=== PATIENT | male | born 1955 | race African-American/Black ===

== ENCOUNTER 2017-10-04 13:22 | Outpatient (CLI) | payer SELFPAY ==
--- NOTE | 2017-10-04 15:29 | RAD ---
TWO VIEWS CHEST: History: Occupational Health Screening. FINDINGS: PA and lateral views obtained. The lungs are well aerated. No evidence of active intrathoracic diseas e is seen. No evidence of effusions, pneumonia, or pneumothorax seen. No evidence of interstitial brayan g changes seen. No evidence of pleural plaque seen. No calcification is seen. No evidence of effusion s seen. No evidence of hilar lymphadenopathy or calcifications seen. No evidence of calcified lymph n odes seen. IMPRESSION: Normal PA and lateral views of the chest. POS: [facility]
== END 2017-10-04 13:23 | disposition home or self-care (01) ==
LOC: NAV RAD 13:22
PROVIDERS: ATTEND Radiology Diagnostic Radiology
DX: Z02.89 Encounter for other administrative examinations (principal)
CPT/HCPCS: 71046